=== PATIENT | male | born 1975 | race Caucasian/White ===

== ENCOUNTER 2020-05-25 20:02 | Emergency (ER) | payer OTHER ==
[2020-05-25 21:07] LABS: HEMOGLOBIN 15.6 gm/dl (14.0-17.5); RED BLOOD COUNT 4.71 M/UL (4.20-5.50); WHITE BLOOD COUNT 4.7 K/UL (4.5-11.0)
[2020-05-25 21:35] LABS: BUN/CREATININE RATIO 12 (0-10)
[2020-05-25] MEDS ORDERED: VENTOLIN HFA 66.7 GM INH (23:30)
[2020-05-25] MEDS ORDERED: AEROCHAMBER1 EA XX (23:30)
== END 2020-05-25 23:37 | disposition home or self-care (01) ==
LOC: ER1 20:02
PROVIDERS: Emergency Medicine
DX: R06.00 Dyspnea, unspecified (principal); F17.200 Nicotine dependence, unspecified, uncomplicated; R00.0 Tachycardia, unspecified; I10 Essential (primary) hypertension; Z88.0 Allergy status to penicillin; Z88.1 Allergy status to other antibiotic agents
CPT/HCPCS: 71045; 80053; 82550; 82553; 83605; 83874; 83880; 84484; 85025; 85379; 87040; 93005; 99285; Q9967

== ENCOUNTER 2020-10-07 07:02 | Emergency (ER) | payer OTHER ==
[~2020-10-07 07:02] MED LIST: AEROCHAMBER1 EA XX; VENTOLIN HFA 66.7 GM INH
[2020-10-07 08:12] LABS: RED BLOOD COUNT 4.36 M/UL (4.20-5.50); WHITE BLOOD COUNT 11.1 K/UL (4.5-11.0)
[2020-10-07 08:52] LABS: BUN/CREATININE RATIO 17 (0-10)
== END 2020-10-07 16:14 | disposition other institution (70) ==
LOC: ER1 07:02
PROVIDERS: Emergency Medicine
DX: G91.1 Obstructive hydrocephalus (principal); G40.909 Epilepsy, unspecified, not intractable, without status epilepticus; I10 Essential (primary) hypertension; F17.200 Nicotine dependence, unspecified, uncomplicated; Z20.822 Contact with and (suspected) exposure to COVID-19
CPT/HCPCS: 70450; 71045; 80053; 80307; 81001; 82550; 82553; 83605; 83690; 84484; 85025; 85610; 85730; 93005; 96374; 96376; 99285; J3360; U0002

== ENCOUNTER 2020-11-28 14:34 | Emergency (ER) | payer OTHER ==
[2020-11-28] MEDS ORDERED: MEDROL4 MG PO (17:52)
== END 2020-11-28 18:00 | disposition home or self-care (01) ==
LOC: ER1 14:34
DX: T78.40XA Allergy, unspecified, initial encounter (principal); R22.0 Localized swelling, mass and lump, head; R06.02 Shortness of breath; K13.0 Diseases of lips; I10 Essential (primary) hypertension
CPT/HCPCS: 96374; 99283

== ENCOUNTER 2021-01-01 13:56 | Emergency (ER) | payer OTHER ==
[~2021-01-01 13:56] MED LIST changes: +MEDROL4 MG PO
== END 2021-01-01 14:18 | disposition left against medical advice (07) ==
LOC: ER1 13:56
DX: Z53.21 Procedure and treatment not carried out due to patient leaving prior to being seen by health care provider (principal)

== ENCOUNTER 2021-10-12 08:29 | Emergency (ER) | payer OTHER ==
[2021-10-12 09:10] LABS: HEMOGLOBIN 16.2 gm/dl (14.0-17.5); RED BLOOD COUNT 4.68 M/UL (4.20-5.50); WHITE BLOOD COUNT 6.7 K/UL (4.5-11.0)
[2021-10-12 09:29] LABS: BUN/CREATININE RATIO 15 (0-10)
[2021-10-12] MEDS ORDERED: EPIPEN 2-P0.3 MG/0.3 INJ (12:13)
== END 2021-10-12 12:29 | disposition home or self-care (01) ==
LOC: ER1 08:29
PROVIDERS: Emergency Medicine
DX: K02.9 Dental caries, unspecified (principal); F10.239 Alcohol dependence with withdrawal, unspecified; Z88.1 Allergy status to other antibiotic agents
CPT/HCPCS: 70486; 71045; 80053; 80307; 81001; 83605; 83735; 84100; 85025; 87040; 87086; 96372; 96374; 96375; 99285; G0480; J0561; J1100; J2060